=== PATIENT | female | born 1975 | race Caucasian/White ===

== ENCOUNTER 2018-12-06 18:41 | Emergency (ER) | payer OTHER ==
[~2018-12-06] VITALS: Ht 162.6 cm; Wt 61.2 kg
[2018-12-06 18:48] VITALS: BP 120/77
--- NOTE | 2018-12-06 18:48 | NUR ---
PT BIB OFFICER [facility] FOR PRE-BOOK. PT HAS INSECT BIT ON LT FOREARM WITH REDNESS, NO SWELLING PRESENT. PT STATES THAT SHE NEEDS SERAQUEL AND PAXIL FOR DEPRESSION AND BIPOLAR. VSS. KARRI MISHRA TO SEE PT. MEDHX:BIPOLAR, DEPRESSION, SCHITZOPHRENIA RX:SERAQUEL, PAXIL
--- NOTE | 2018-12-06 19:24 | NUR ---
Dr. Campbell evaluating patient
[2018-12-06 19:25] VITALS: BP 120/77
--- NOTE | 2018-12-06 19:25 | NUR ---
PATIENT MEDICALLY CLEARED AND RELEASED IN CUSTODY IN STABLE CONDITION. ORIGINAL PRE-BOOK FORM AND COPY GIVEN TO OFFICER. DISCHARGE INSTRUCTIONS PROVIDED TO OFFICER AND EXPLAINED TO PATIENT. RX FOR PAXIL 30MG AND SEROQUEL 100MG PROVIDED AND GIVEN TO OFFICER. VSS UPON DISCHARGE.
== END 2018-12-06 19:25 ==
LOC: MED 18:41
DX: Z02.89 Encounter for other administrative examinations (principal); Z76.0 Encounter for issue of repeat prescription; F17.200 Nicotine dependence, unspecified, uncomplicated
CPT/HCPCS: 99283